=== PATIENT | male | born 1950 | race Caucasian/White ===

== ENCOUNTER 2022-03-19 13:50 | Inpatient (IN) ==
[2022-03-19] MEDS ORDERED: ASPIRIN CHEW 324 MG PO STA (14:11)
--- NOTE | 2022-03-19 14:17 | Cardiology Consultation ---
Date of Consultation March 19, 2022 Assessment & Plan (1) Exertional angina: (2) Abnormal cardiovascular stress test: (3) HTN (hypertension): (4) HLD (hyperlipidemia): (5) CVA (cerebral vascular accident): Plan Patient is a 71-year-old male with cardiovascular risk factors and concerns who presented noting symptoms of progressive pattern of angina pectoris over the last years time. Symptoms now occurring at lower levels of exertion patient's been treating complaints with rest but notes overall exercise tolerance has decreased. Patient was referred by PCP for stress testing with stress testing abnormal consistent with multivessel coronary disease. Patient recommended be admitted for IV anticoagulation and referral for diagnostic coronary angiography. He presents now for planned Recommendations: Patient will be admitted and begun on IV heparin. Aspirin given in ER. We will hold clopidogrel in a.m. given suspicion of surgical disease. Patient scheduled for coronary angiography in a.m. we will begin IV hydration this evening Procedure and risks explained in detail. present for discussion. Patient is agreeable to plan History of Present Illness Reason for Consultation: Exertional angina, abnormal stress testing Requesting Physician: Kareem Calloway History of Present Illness Patient is a 71-year-old male whose ongoing issues include 1. Symptoms consistent with exertional angina with abnormal stress testing 2. Hypertension 3. Hyperlipidemia 4. 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 No recent fevers chills or unexpected infections. No bleeding difficulties. 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 No recent neurologic complaints. Appetite and weight are stable. No prior difficulties with contrast administration, sedation. Allergies Allergy/AdvReac Type Severity Reaction Status Date / Time No Known Allergies Allergy Unverified 03/19/22 14:35 Home Medications Medication Instructions Recorded Confirmed Type atorvastatin 40 mg tablet 40 mg PO HS 03/19/22 03/19/22 History clopidogrel 75 mg tablet 75 mg PO DAILY 03/19/22 03/19/22 History lisinopril 10 mg tablet 10 mg PO DAILY 03/19/22 03/19/22 History multivitamin 1 tab PO DAILY 03/19/22 03/19/22 History Patient History Medical History CVA (cerebral vascular accident) "November 2017: Two small acute-subacute infarcts within left frontal lobe" HLD (hyperlipidemia) HTN (hypertension) Surgical History Hx of colonoscopy Family History Grandfather Diabetes Father Hypertension Uncle , multiple uncles passed before 40 due to sudden [place] Coronary heart disease Social History Smoking Status: Never smoker Hx Alcohol Use: No Hx Substance Use: No Preferred Language: East Timorese marital status: Current Living Situation: Spouse current occupational status: employed 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 Feels Safe at Home: Yes Review of Systems Review of Systems: All systems reviewed & are unremarkable except as noted in HPI & below Physical Exam Constitutional: WD/WN, vitals as above Eyes: PERRL, conjunctivae normal, anicteric sclerae ENMT: external ear and nose normal, oropharynx normal Neck: trachea midline, no thyromegaly Respiratory: normal respiratory effort, lungs clear to auscultation Cardiovascular: Rate/Rhythm: regular rate and regular rhythm Heart Sounds: normal S1 and normal S2; no gallop and no murmur Palpation: normal PMI Vessels: normal carotid upstroke and radial pulses present; no JVD and no carotid bruit Extremities: no edema Gastrointestinal (Abdomen): normal bowel sounds, soft, nontender, no he patosplenomegaly Musculoskeletal: no cyanosis or clubbing, extremities motor strength 5/5 Skin: no rashes, warm and dry Neurologic: PERRL, EOMI, accommodation nl, no face palsy, no dysarthria Psychiatric: A+Ox3, euthymic affect Results & Data ([facility]) Vital Signs (Past 12 Hours) Vital Signs Temp Pulse Resp BP Pulse Ox O2 Del Method 03/19/22 13:52 37.1 C 70 16 133/79 95 Room Air Diagnostic Findings Stress echocardiogram 03/17/2022 The stress echo is markedly positive for inducible ischemia. Exercise capacity is below average . The stress test was terminated due to chest pain. Markedly abnormal horizontal/downsloping ST-depression >2mm is noted in inferior leads. Markedly abnormal horizontal/downsloping ST-depression >2mm is noted in lateral leads. Right bundle branch block occurred with stress. At rest, there is mild hypokinesis of the inferior, inferoseptal myers and apical anterior septum With stress there was induced severe hypokinesis of the entire septum and inferior wall There is stress induced mild left ventricular cavity dilatation. The left ventricular ejection fraction decreases moderately with stress. The left ventricular cavity size is normal. The wall thickness is moderately increased in segments with normal wall motion. The qualitative LV ejection fraction is 50-54% (normal). Mild mitral regurgitation is present. Mild tricuspid regurgitation is present.
--- NOTE | 2022-03-19 14:20 | Emergency Department Note ---
Impression & Plan Precordial chest pain, Abnormal cardiovascular stress test ED Provider Note NAME: HOOD LÓPZE AGE: 71 SEX: M : 1950 ARRIVES VIA: Walk-In INFORMANT: [Patient] ED PROVIDER(S): [Douglas Powell MD] CHIEF COMPLAINT: Referred by HISTORY OF PRESENT ILLNESS: The patient is a 71-year-old male who had a stress test on Sunday and failed. The patient developed typical angina ST segment abnormalities and a transient right bundle branch block. Symptoms resolved in the recovery phase without intervention. Resting echocardiography demonstrated mild hypokinesis of the septum with stress echocardiography reflecting significant ischemia/wall motion abnormalities consistent with multivessel coronary artery disease. The patient states that his chest pain is exertional, it lasts for a few minutes but then seems to resolve with rest. The intensity is a 3/10. He feels some tingling in his arms as well. He is not short of breath, no sweating or nausea. He has had the exertional chest pain now for several years, but it has been worsening lately. The patient was called by cardiology, Dr. Shafer. He was advised to come to the hospital today for admission and cardiac catheterization tomorrow. The patient currently has no chest pain. REVIEW OF SYSTEMS: See HPI for pertinent positives and negatives. A total of ten systems were reviewed and were otherwise negative. PMHx/PSHx: See Below SOCIAL HISTORY: See Below. PHYSICAL EXAM: GENERAL: Patient is in no acute distress. HEENT: No acute trauma, normocephalic atraumatic, mucous membranes moist, no nasal congestion, no scleral icterus. NECK: No stridor, no adenopathy, no meningismus, trachea is midline. LUNGS: Clear to auscultation bilaterally, no wheeze, no rhonchi, breath sounds equal. HEART: Without murmurs gallops or rubs, regular rate and rhythm. ABDOMEN: Soft, nontender, bowel sounds positive, no peritonitis. EXTREMITIES: No cyanosis or edema, full range of motion of all the joints without pain or difficulty, no signs for acute trauma. NEUROLOGIC: Oriented x 3, no acute motor or sensory deficits, no focal weakness. SKIN: No rash, no jaundice, no diaphoresis. DIFFERENTIAL DIAGNOSIS: Cardiac ischemia, aortic dissection, pulmonary embolism, pneumothorax, pneumonia, pericarditis, myocarditis, esophageal rupture, GERD, cholecystitis, pancreatitis, musculoskeletal, as well as other pathologies. EMERGENCY DEPARTMENT COURSE/PROCEDURES: ECG: Indication was chest pain. The ECG shows a normal sinus rhythm with a rate of 64. LVH is present. There is some mild nonspecific ST change primarily in the lateral leads. There is no ST elevation. No PVCs. The QTc is 422. Continuous Cardiac Monitoring: An order was placed for continuous cardiac monitoring. The monitor shows a rate of 70 with normal sinus rhythm. MEDICAL DECISION MAKING: There is no leukocytosis or worrisome anemia. There is a normal platelet count. No coagulopathy. No renal failure or significant electrolyte abnormality. No concerning liver enzyme elevation. No evidence for pancreatitis. The patient appears to be in a euthyroid state. ECG shows a normal sinus rhythm, no obvious ST elevation. Cardiac enzyme testing x1 is not consistent with acute cardiac injury. Chest x-ray does not show pneumonia, mediastinal widening or pneumothorax. COVID test returned negative. On exam, the patient was resting comfortably. He did not have any chest pain. The patient presents with an abnormal stress test. He has had classic anginal symptoms. Hospitalization has been recommended for potential cardiac catheterization tomorrow. I spoke with the patient, I talked to case management. I did speak with Dr. Shafer of cardiology. The on-call hospitalist was consulted. Patient was given 4 baby aspirin orally while in the ED. Past Med/Surg History Medical History CVA (cerebral vascular accident) "November 2017: Two small acute-subacute infarcts within left frontal lobe" HLD (hyperlipidemia) HTN (hypertension) Surgical History Hx of colonoscopy Family History Grandfather Diabetes Father Hypertension Uncle , multiple uncles passed before 40 due to sudden [place] Coronary heart disease Social History Smoking Status: Former smoker Hx Alcohol Use: No Hx Substance Use: No Preferred Language: Gabonese Communication Ability: Effective Museum Exhibit Designer Required: No marital status: Current Living Situation: Spouse current occupational status: employed 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 Feels Safe at Home: Yes Safety Concerns: Feels Safe At This Time Assistive Devices: Glasses Allergies Allergies Allergy/AdvReac Type Severity Reaction Status Date / Time No Known Allergies Allergy Unverified 03/19/22 14:35 Home Meds Home Medications Medication Instructions Recorded Confirmed atorvastatin 40 mg tablet 40 mg PO HS 03/19/22 03/19/22 clopidogrel 75 mg tablet 75 mg PO DAILY 03/19/22 03/19/22 lisinopril 10 mg tablet 10 mg PO DAILY 03/19/22 03/19/22 multivitamin 1 tab PO DAILY 03/19/22 03/19/22 Results & Data (ED) Vital Signs Vital Signs - 24 hr 03/19/22 13:52 Temperature 37.1 C Temperature Source Oral Pulse Rate 70 Respiratory Rate 16 Respiratory Effort / Characteristics Non-Labored Respiratory Depth Normal Blood Pressure 133/79 Blood Pressure Mean 97 Pulse Oximetry 95 Oxygen Delivery Method Room Air Sepsis Recent Fever Within 48 Hours No Sepsis New/Unexplained Change in Mental Status No Sepsis Action Taken by Nursing No Action Required Home Medications Current Medication List: was personally reviewed by me Laboratory Data Attestation: I reviewed the patient's lab results. Result diagrams: 03/19/22 14:38 03/19/22 14:38 Administered Medications Atorvastatin Calcium (Atorvastatin 40 Mg Tab) 40 mg PO HS BECKY Stop: 04/18/22 20:59 Last Admin: 03/19/22 20:10 Dose: 40 mg Documented By: SASKIA Heparin Sodium/Dextrose (Heparin Sodium/Dextrose) 25,000 units in 500 mls @ 26 mls/hr IV .[id number] [facility]; Protocol Stop: 04/18/22 14:59 Last Admin: 03/19/22 17:46 Dose: 1,300 units/hr, 26 mls/hr Documented By: MALINA Co-signed By: CC Discontinued Medications Aspirin (Aspirin Chew 324 Mg) 324 mg PO NOW STA Stop: 03/19/22 14:12 Last Admin: 03/19/22 15:30 Dose: 324 mg Documented By: HS Heparin Sodium/Dextrose (Heparin Iv Adult Wt-Based Standard *No* Bolus Protocol) 1 each IV ONE ONE; Protocol Stop: 03/19/22 14:41 Last Admin: 03/19/22 17:47 Dose: 1 each Documented By: MARIA DEL ROSARIO Imaging Data Radiologist's Impression: Chest X-Ray 03/19/22 14:11 SINGLE VIEW CHEST CLINICAL HISTORY: Atypical chest pain FINDINGS: An AP, portable, upright chest radiograph is compared to study dated 12/20/2017. The heart is enlarged. The pulmonary vasculature is noncongested. The lungs and pleural spaces are clear. No pneumothorax is seen. The skeletal structures are osteopenic. The bony thorax is grossly intact. There is atherosclerotic calcification of the carotid bulbs. IMPRESSION: Cardiomegaly with no active disease in the chest. ACT 112: Negative or not required by law. Electronically signed by: Douglas Sanders M.D. 03/19/2022 3:16 PM Discharge Plan Visit Data Chief Complaint: Referred by Doctor Stated Complaint: REFERRED BY DOCTOR ED Provider: Douglas Powell Discharge Problem: Precordial chest pain, Abnormal cardiovascular stress test Patient Disposition: Admitted As Inpatient Condition: Good Discharge Instructions Interventions: ED Discharge Assessment Last Done: 03/19/22 16:27
[2022-03-19] MEDS ORDERED: Heparin IV Adult Wt-Based Standard *NO* Bolus Protocol IV ONE (14:40)
--- NOTE | 2022-03-19 14:48 | History & Physical Report ---
Date of Service March 19, 2022 Assessment & Plan (1) Abnormal cardiovascular stress test: (2) Exertional angina: (3) HTN (hypertension): (4) HLD (hyperlipidemia): (5) CVA (cerebral vascular accident): Plan This is a 71-year-old male who has a significant past medical history of HTN, HLD, history of left MCA distribution CVA without residual deficit in 2018 on antiplatelet therapy who presents to ED at the referral of cardiology due to failed outpatient stress test. Abnormal cardiovascular stress test Exertional angina Admit to PCU Cardiology on board, referred patient for admission N.p.o. after midnight for cardiac catheterization in a.m. IV heparin no bolus initiated ASA given in ED, 324mg Patient did take Plavix today, will hold morning Plavix until results of catheterization, confirmed this with cardiology Lipid panel and A1c in a.m. Continue atorvastatin and lisinopril IV hydration this evening HTN Continue lisinopril HLD Continue statin History of CVA, left MCA distribution without residual deficit On statin and Plavix therapy as outpatient DVT prophylaxis: IV heparin, SCDs Dispo: PCU, n.p.o. after midnight, cardiac catheterization in a.m. PCP: Baltazar FULL CODE Patient was seen and examined in collaboration with Dr. Wharton, please see addendum History of Present Illness Chief Complaint: Referred to ED by cardiology due to failed outpatient stress test. Primary Care Provider: Ace Ledesma, DO This is a 71-year-old male who has a significant past medical history of HTN, HLD, history of left MCA distribution CVA without residual deficit in 2018 on antiplatelet therapy who presents to ED at the referral of cardiology due to failed outpatient stress test. Patient was seen and evaluated by cardiology for outpatient stress test due to a progressive pattern of chest pain over the last several years. His chest pain has now been occurring with minimal exertion and symptoms have been improved with rest. On 03/17 he underwent stress echocardiogram which was markedly abnormal showing ST depressions in inferior and lateral leads, right bundle celio block occurring with stress. At rest there was mild hypokinesis of the inferior, inferior septal myers and apical anterior septum. With stress there was severe hypokinesis of the entire septum and inferior wall, stress-induced mild left ventricular cavity dilation and left ventricular ejection fraction decreases moderately with stress. He was referred to immediately seek hospital for further medical management on 03/17; however, patient declined. He was agreeable however to come over today for admission and cardiac catheterization tomorrow despite this not being optimal. At rest currently he feels well. He denies any fever, chills, sweats, lightheadedness, dizziness, syncope, chest pain, shortness with, cough, nausea, vomiting, abdominal pain, change in bowel or urinary habits. He did take his Plavix this morning. He is typically very active at baseline. 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 Allergies Allergy/AdvReac Type Severity Reaction Status Date / Time No Known Allergies Allergy Unverified 03/19/22 14:35 Home Medications Medication Instructions Recorded Confirmed Type atorvastatin 40 mg tablet 40 mg PO HS 03/19/22 03/19/22 History clopidogrel 75 mg tablet 75 mg PO DAILY 03/19/22 03/19/22 History lisinopril 10 mg tablet 10 mg PO DAILY 03/19/22 03/19/22 History multivitamin 1 tab PO DAILY 03/19/22 03/19/22 History Past Med/Surg History Medical History CVA (cerebral vascular accident) "November 2017: Two small acute-subacute infarcts within left frontal lobe" HLD (hyperlipidemia) HTN (hypertension) Surgical History Hx of colonoscopy Family History Grandfather Diabetes Father Hypertension Uncle , multiple uncles passed before 40 due to sudden [place] Coronary heart disease Social History Smoking Status: Never smoker Hx Alcohol Use: No Hx Substance Use: No Preferred Language: Azeri marital status: Current Living Situation: Spouse 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 occupational status: 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 Normal insp/exp effort, no accessory muscle use Cardiovascular: RRR, no murmur, no edema Vessels: no JVD or carotid bruit Chest: normal inspection of chest Abdomen: normal bowel sounds, soft, nontender, no hepatosplenomegaly Musculoskeletal: no cyanosis or clubbing, extremities motor strength 5/5 Skin: no rashes, warm and dry normal turgor Neurologic: PERRL, EOMI, accommodation nl, no face palsy, no dysarthria CN's II-XI intact bilaterally and moves all extremities Psychiatric: A+Ox3, euthymic affect Lymphatic: no cervical or axillary lymphadenopathy : deferred Results & Data Results & Data ([facility]) Vital Signs (Past 12 Hours) Vital Signs Temp Pulse Resp BP Pulse Ox O2 Del Method 03/19/22 13:52 37.1 C 70 16 133/79 95 Room Air Diagnostic Findings Stress echocardiogram 03/17/2022 The stress echo is markedly positive for inducible ischemia. Exercise capacity is below average . The stress test was terminated due to chest pain. Markedly abnormal horizontal/downsloping ST-depression >2mm is noted in inferior leads. Markedly abnormal horizontal/downsloping ST-depression >2mm is noted in lateral leads. Right bundle branch block occurred with stress. At rest, there is mild hypokinesis of the inferior, inferoseptal myers and apical anterior septum With stress there was induced severe hypokinesis of the entire septum and inferior wall There is stress induced mild left ventricular cavity dilatation. The left ventricular ejection fraction decreases moderately with stress. The left ventricular cavity size is normal. The wall thickness is moderately increased in segments with normal wall motion. The qualitative LV ejection fraction is 50-54% (normal). Mild mitral regurgitation is present. Mild tricuspid regurgitation is present. ECG Rate (beats per minute): 64 Rhythm: normal sinus COVID-19 Results Results COVID-19 Adm Lab Results: RBC 4.15 M/uL (4.63-6.08) L 03/19/22 WBC 5.09 K/ul (4.8-10.8) 03/19/22 Hgb 13.7 g/dl (14.0-18.0) L 03/19/22 Hct 40.1 % (40.1-51.0) 03/19/22 Plt Count 178 K/uL (130-400) 03/19/22 Neutrophils (%) (Auto) 50.5 % 03/19/22 Lymphocytes (%) (Auto) 37.9 % 03/19/22 Monocytes # (Auto) 0.46 K/uL (0.24-0.82) 03/19/22 Eosinophils # (Auto) 0.09 K/uL (0-0.50) 03/19/22 Immature Granulocyte % (Auto) 0.0 % 03/19/22 Neutrophils # (Auto) 2.57 K/uL (1.4-6.5) 03/19/22 Lymphocytes # (Auto) 1.93 K/uL (1.2-3.4) 03/19/22 Monocytes # (Auto) 0.46 K/uL (0.24-0.82) 03/19/22 Eosinophils # (Auto) 0.09 K/uL (0-0.50) 03/19/22 Basophils # (Auto) 0.04 K/uL (0-0.2) 03/19/22 Immature Granulocyte # (Auto) 0.00 K/uL (0.00-0.02) 2 Na 141 mmol/L (136-145) 03/19/22 K 3.9 mmol/L (3.5-5.1) 03/19/22 Cl 103 mmol/L (98-107) 03/19/22 CO2 24 mmol/L (21-32) 03/19/22 Anion Gap 14 (3-11) H 03/19/22 BUN 16 mg/dl (6-23) 03/19/22 Creatinine 1.01 mg/dl (0.6-1.4) 03/19/22 BUN/Creatinine Ratio 15.8 (10-20) 03/19/22 Glucose Level 134 mg/dl (70-99(Fasting)) H 03/19/22 Ca 9.2 mg/dl (8.5-10.1) 03/19/22 Total Bilirubin 0.6 mg/dl (0.2-1.0) 03/19/22 AST/SGOT 23 U/L (13-39) 03/19/22 ALT/SGPT 19 U/L (7-52) 03/19/22 Alkaline Phosphatase 50 U/L (34-104) 03/19/22 Total Protein 6.9 gm/dl (6.0-8.3) 03/19/22 Albumin 4.2 gm/dl (3.4-5.0) 03/19/22 Globulin 2.7 gm/dl (2.5-4.0) 03/19/22 Albumin/Globulin Ratio 1.6 (0.9-2) 03/19/22 PTT 25.1 Seconds (21.0-31.0) 03/19/22 INR 1.0 (0.9-1.1) 03/19/22 SARS-CoV-2, RNA, NAAT NEGATIVE (NEGATIVE) 03/19/22 Chest X-Ray 03/19/22 Code Status & VTE Plan Code Status FULL CODE VTE Prophylaxis Plan VTE Prophylaxis will be ordered: Yes Supervising Physician Co-Signing Physician Notes Pt was seen and examined. Agreed with Mirna DUMONT exam, assessment and plan. 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 Pt said that he had the stress done because of intermittent chest pain that he has been having for about 2 years, now occurs more with minimal exertion. He received a call from Dr. Shafer to come to the ER that he can arrange for cardiac cath tomorrow morning. Currently patient denies any chest pain. Case discussed with cardiology that recommended to start on IV heparin drip with no bolus and hold Plavix for now. Aspirin 324mg given in the ER. Will make NPO after midnight for cardiac cath in am. Will monitor closely in PCU. MD Dio
[2022-03-19 14:53] LABS: Basophils # (auto) 0.04 K/uL (0-0.2); Basophils % (auto) 0.8 %; Eosinophils # (auto) 0.09 K/uL (0-0.50); Eosinophils % (auto) 1.8 %; Hematocrit (blood only) 40.1 % (40.1-51.0); Hemoglobin 13.7 g/dl (14.0-18.0); Lymphocytes # (auto) 1.93 K/uL (1.2-3.4); Lymphocytes % (auto) 37.9 %; Mean Corpuscular Hgb Conc 34.2 g/dL (32.0-36.0); Mean Corpuscular Volume 96.6 fL (80.0-100.0); Mean Platelet Volume 10.2 fL (9.4-12.4); Monocytes # (auto) 0.46 K/uL (0.24-0.82); Neutrophils # (auto) 2.57 K/uL (1.4-6.5); Neutrophils % (auto) 50.5 %; Platelet Count 178 K/uL (130-400); RDW Coefficient of Variation 12.3 % (11.5-14.5); RDW Standard Deviation 43.8 fL (36.4-46.3); Red Blood Count 4.15 M/uL (4.63-6.08); White Blood Count 5.09 K/ul (4.8-10.8)
[2022-03-19 15:06] LABS: Partial Thromboplastin Ratio 0.9; Partial Thromboplastin Time 25.1 Seconds (21.0-31.0); Prothrombin Time 10.9 Seconds (9.0-12.0)
--- NOTE | 2022-03-19 15:17 | XRay Report ---
SINGLE VIEW CHEST CLINICAL HISTORY: Atypical chest pain FINDINGS: An AP, portable, upright chest radiograph is compared to study dated 12/20/2017. The heart i s enlarged. The pulmonary vasculature is noncongested. The lungs and pleural spaces are clear. No pne umothorax is seen. The skeletal structures are osteopenic. The bony thorax is grossly intact. There i s atherosclerotic calcification of the carotid bulbs. IMPRESSION: Cardiomegaly with no active disease in the chest. ACT 112: Negative or not required by law. Electronically signed by: Douglas Sanders M.D. 03/19/2022 3:16 PM
[2022-03-19 15:22] LABS: Troponin I High Sensitivity 18.7 pg/ml (0-20)
[2022-03-19 15:24] LABS: Albumin Globulin Ratio 1.6 (0.9-2); Albumin Level 4.2 gm/dl (3.4-5.0); BUN Creatinine Ratio 15.8 (10-20); Bilirubin,Total 0.6 mg/dl (0.2-1.0); Calcium 9.2 mg/dl (8.5-10.1); Est GFR (African American) 85.7 ml/min; Globulin 2.7 gm/dl (2.5-4.0); Potassium 3.9 mmol/L (3.5-5.1); Total Protein 6.9 gm/dl (6.0-8.3)
[2022-03-19] MEDS ORDERED: ONDANSETRON INJ 2 MG/ML 2 ML VIAL IV PRN (17:24)
[2022-03-19] MEDS ORDERED: ALUMINUM/MAGNESIUM SUSP 30 ML UDC PO PRN (17:24)
[2022-03-19] MEDS ORDERED: ACETAMINOPHEN 325 MG TAB PO PRN (17:24)
[2022-03-19] MEDS ORDERED: POLYETHYLENE (MIRALAX) 17 GM PACK PO PRN (17:24)
[2022-03-19] MEDS: HEPARIN SODIUM/DEXTROSE 25,000 UNITS/500 ML BAG IV SCH (17:46)
[2022-03-19] MEDS ORDERED: ATORVASTATIN 40 MG TAB PO SCH (21:00)
--- NOTE | 2022-03-19 22:00 | Electrocardiogram Report ---
Test Reason : Blood Pressure : / mmHG Vent. Rate : 064 BPM Atrial Rate : 064 BPM P-R Int : 178 ms QRS Dur : 090 ms QT Int : 410 ms P-R-T Axes : 000 -21 033 degrees QTc Int : 422 ms Normal sinus rhythm Minimal voltage criteria for LVH, may be normal variant Nonspecific ST and T wave abnormality Abnormal ECG When compared with ECG of 21-DEC-2017 07:20, No significant change was found Confirmed by Jackson Johnson ([id number]) on 03/19/2022 10:00:23 PM Referred By: Chun Shafer Confirmed By:Jackson Johnson
[2022-03-20] MEDS ORDERED: SODIUM CHLORIDE 0.9% 1000ML 1,000 ML IV SCH (00:01)
[2022-03-20 00:16] LABS: Partial Thromboplastin Ratio 2.3
[2022-03-20 00:31] LABS: Partial Thromboplastin Time 63.4 Seconds (21.0-31.0)
[2022-03-20 07:20] LABS: Basophils # (auto) 0.05 K/uL (0-0.2); Basophils % (auto) 0.8 %; Eosinophils # (auto) 0.16 K/uL (0-0.50); Eosinophils % (auto) 2.6 %; Hematocrit (blood only) 39.7 % (40.1-51.0); Hemoglobin 13.8 g/dl (14.0-18.0); Immature Granulocytes # (auto) 0.01 K/uL (0.00-0.02); Immature Granulocytes % (auto) 0.2 %; Lymphocytes # (auto) 2.81 K/uL (1.2-3.4); Lymphocytes % (auto) 44.9 %; Mean Corpuscular Hgb Conc 34.8 g/dL (32.0-36.0); Mean Platelet Volume 10.5 fL (9.4-12.4); Monocytes # (auto) 0.55 K/uL (0.24-0.82); Monocytes % (auto) 8.8 %; Neutrophils # (auto) 2.68 K/uL (1.4-6.5); Neutrophils % (auto) 42.7 %; Platelet Count 180 K/uL (130-400); RDW Coefficient of Variation 12.3 % (11.5-14.5); RDW Standard Deviation 43.1 fL (36.4-46.3); Red Blood Count 4.18 M/uL (4.63-6.08); White Blood Count 6.26 K/ul (4.8-10.8)
[2022-03-20 07:58] LABS: Partial Thromboplastin Ratio 3.3
[2022-03-20 08:00] LABS: Partial Thromboplastin Time 91.4 Seconds (21.0-31.0)
[2022-03-20 08:08] LABS: Albumin Globulin Ratio 1.6 (0.9-2); Albumin Level 4.2 gm/dl (3.4-5.0); BUN Creatinine Ratio 14.8 (10-20); Bilirubin,Total 0.8 mg/dl (0.2-1.0); Calcium 9.1 mg/dl (8.5-10.1); Creatinine Clr Calc Pharmacy 59.8 ml/min; Est GFR (African American) 79.1 ml/min; Est GFR (Non-African American) 68.2 ml/min; Globulin 2.6 gm/dl (2.5-4.0); Magnesium 2.1 mg/dl (1.7-2.4); Potassium 4.1 mmol/L (3.5-5.1); Total Protein 6.8 gm/dl (6.0-8.3)
--- NOTE | 2022-03-20 08:23 | Pre Anesthesia Assessment ---
Date of Service March 20, 2022 Pre Sedation Assessment Vital Signs Temp Pulse Pulse Pulse Resp BP BP 03/20/22 03:36 36.7 C 46 L 18 125/61 03/19/22 23:37 36.5 C 54 L 18 116/63 03/19/22 22:59 47 L 03/19/22 21:10 49 L 03/19/22 21:00 36.7 C 75 16 145/77 H 03/19/22 19:42 36.7 C 54 L 18 03/19/22 16:48 50 L 03/19/22 17:00 37.6 C H 67 18 03/19/22 16:27 03/19/22 16:00 51 L 20 03/19/22 16:00 127/85 03/19/22 15:30 56 L 20 03/19/22 15:30 141/96 H 03/19/22 15:29 56 L 16 03/19/22 16:19 18 03/19/22 15:30 61 20 141/96 H 03/19/22 14:30 70 16 03/19/22 13:52 37.1 C 70 16 133/79 BP Pulse Ox O2 Del Method 03/20/22 03:36 97 Room Air 03/19/22 23:37 95 Room Air 03/19/22 22:59 03/19/22 21:10 03/19/22 21:00 95 Room Air 03/19/22 19:42 130/79 96 Room Air 03/19/22 16:48 03/19/22 17:00 142/88 H 97 Room Air 03/19/22 16:27 Room Air 03/19/22 16:00 03/19/22 16:00 03/19/22 15:30 03/19/22 15:30 03/19/22 15:29 03/19/22 16:19 97 03/19/22 15:30 97 Room Air 03/19/22 14:30 95 Room Air 03/19/22 13:52 95 Room Air Cardiovascular + regular rate and + regular rhythm + S1 normal and + S2 normal; no murmur + femoral pulses present and + radial pulses present; no JVD Respiratory normal respiratory effort, lungs clear to auscultation Pre-Sedation Airway Assessment Smoking Status: Former smoker Short, Thick Neck: No Thyromental Distance: > or= 3.5 Finger Breadths Oral Cavity: + WNL Mallampati Class: III ASA: ASA3 NPO Status Date of Last Intake of Fluids: 03/19/22 Date of Last Intake of Solid Food: 03/19/22 Procedure Planning Contraindications for Sedation: none Current Medications Reviewed: Yes Notes The planned sedation has been discussed with the patient. Informed Consent was obtained. I have identified the patient, determined the appropriateness of sedation and have assessed the patient immediately prior to the procedure. All medicine(s) and interventions are by my order.
[2022-03-20] MEDS ORDERED: niCARdipine HCL INJ 2.5 MG/ML 10 ML AMP ONE (08:48)
[2022-03-20] MEDS ORDERED: HEPARIN (PORCINE) 1000 UNIT/ML 10 ML (CATH LAB USE ONLY) ONE (08:48)
[2022-03-20] MEDS ORDERED: MIDAZOLAM HCL 1 MG/ML 2ML VIAL ONE (08:48)
[2022-03-20] MEDS ORDERED: fentaNYL citrate 100 MCG/2 ML VIAL ONE (08:48)
[2022-03-20] MEDS ORDERED: NITROGLYCERIN/D5W 100MCG/ML 20ML SYR ONE (08:49)
[2022-03-20] MEDS ORDERED: lisinopril 10 MG TAB PO SCH (09:00)
--- NOTE | 2022-03-20 09:15 | Post Anesthesia Assessment ---
Date of Service March 20, 2022 Post Sedation Assessment Vital Signs Temp Pulse Pulse Pulse Resp BP BP 03/20/22 08:55 51 L 16 138/86 03/20/22 03:36 36.7 C 46 L 18 125/61 03/19/22 23:37 36.5 C 54 L 18 116/63 03/19/22 22:59 47 L 03/19/22 21:10 49 L 03/19/22 21:00 36.7 C 75 16 145/77 H 03/19/22 19:42 36.7 C 54 L 18 03/19/22 16:48 50 L 03/19/22 17:00 37.6 C H 67 18 03/19/22 16:27 03/19/22 16:00 51 L 20 03/19/22 16:00 127/85 03/19/22 15:30 56 L 20 03/19/22 15:30 141/96 H 03/19/22 15:29 56 L 16 03/19/22 16:19 18 03/19/22 15:30 61 20 141/96 H 03/19/22 14:30 70 16 03/19/22 13:52 37.1 C 70 16 133/79 BP Pulse Ox O2 Del Method 03/20/22 08:55 96 Room Air 03/20/22 03:36 97 Room Air 03/19/22 23:37 95 Room Air 03/19/22 22:59 03/19/22 21:10 03/19/22 21:00 95 Room Air 03/19/22 19:42 130/79 96 Room Air 03/19/22 16:48 03/19/22 17:00 142/88 H 97 Room Air 03/19/22 16:27 Room Air 03/19/22 16:00 03/19/22 16:00 03/19/22 15:30 03/19/22 15:30 03/19/22 15:29 03/19/22 16:19 97 03/19/22 15:30 97 Room Air 03/19/22 14:30 95 Room Air 03/19/22 13:52 95 Room Air Recovery Score Activity: Moves 4 extremities Respiration: Deep Breath/Cough Circulation: +/-20% PreAnes Value Consciousness: Fully Awake Oxygen Saturation: > 92% On Room Air Post Anesthesia Score: 10 Discharge Sedation Level of Care: Phase I Post Sedation Plan On clinical assessment, the patient appears to have tolerated the sedation without complications. Patient is recovering as anticipated. Patient will continue to be monitored by nursing and may be discharged when sedation discharge criteria are met per below protocol. Upon Completions of procedure up to 15 minutes continue every 5 minute vital signs and the P.A.R. score; then discharge to a Phase I or Fast Track to Phase II per the following guidelines: * Discharge Patient to appropriate Phase II area if PAR is 8 or greater or return to pre- procedure baseline. The post - procedure orders will be as directed. * If PAR score is less than 8 or not return to pre-procedure baseline then patient will follow Phase I monitoring till PAR is reached for Phase II. The Phase I may be done in procedure room or may call to secure a Phase I area. * If naloxone or flumazenil are used for reversal, hold in Phase I for continued monitoring from when last reversal dose was given for a minimum of 60 minutes or longer pending the nurse and/or physician discretion of patient condition before discharge to Phase II. Please call the Sedation Physician to re-evaluate and complete post-note for discharge to Phase II area. Do NOT discharge from procedure sedation or Phase 1 until post- sedation evaluation note is complete by procedure /sedation MD Sedation Discharge Instructions to be given to the patient at discharge to home. Supervising Physician Co-Signing Physician Notes Pt was seen and examined. Agreed with Mirna DUMONT exam, assessment and plan. 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 Pt said that he had the stress done because of intermittent chest pain that he has been having for about 2 years, now occurs more with minimal exertion. He received a call from Dr. Shafer to come to the ER that he can arrange for cardiac cath tomorrow morning. Currently patient denies any chest pain. Case discussed with cardiology that recommended to start on IV heparin drip with no bolus and hold Plavix for now. Aspirin 324mg given in the ER. Will make NPO after midnight for cardiac cath in am. Will monitor closely in PCU. MD Dio
--- NOTE | 2022-03-20 09:18 | Cardiac Catheterization ---
Cardiac Cath Procedure Brief Procedure Date March 20, 2022 Pre-Procedure Diagnosis Pre-Procedure Diagnosis: Angina and Positive Stress Test AUC Score AUC Score: 9 Post-Procedure Diagnosis Post-Procedure Diagnosis: Severe CAD Procedure(s) Performed Procedure(s) Performed: Coronary Angiography Oversize Load Pilot Escort Chun Shafer MD Clinical Operations Consultant(s) Joann Mcmahon Estimated Blood Loss Estimated Blood Loss: <15cc Medication(s) Medication(s): Fentanyl (12.5 mcg IV), Heparin (2500 units IV), Lidocaine 1% (Local infiltration access site), Nicardipine (250 mcg intra-arterial after arterial sheath insertion) and Versed (1 mg IV) Preliminary Findings Critical coronary artery disease Subtotal occlusion right coronary artery with collateral fill via left anatomy Severe left main stenosis, severe ostial left circumflex Recommendations Recommendations: CABG Specimens Specimens: None Procedural Complication(s) None Disposition PCU
--- NOTE | 2022-03-20 09:30 | Cardiac Catheterization ---
Cardiac Cath Procedure Full Procedure Date March 20, 2022 Pre-Procedure Diagnosis Pre-Procedure Diagnosis: Angina and Positive Stress Test (Severe multisegment induced ischemia) AUC Score AUC Score: 9 Post-Procedure Diagnosis Post-Procedure Diagnosis: Severe CAD Procedure(s) Performed Procedure(s) Performed: Coronary Angiography Tree Expert Chun Shafer MD Global Marketing Specialist(s) Joann Mcmahon Estimated Blood Loss Estimated Blood Loss: <15cc Medication(s) Medication(s): Fentanyl (12.5 mcg IV), Heparin (2500 units IV), Lidocaine 1% (Local infiltration access site), Nicardipine (250 mcg intra-arterial after arterial sheath insertion) and Versed (1 mg IV) Summary of Findings Impression: Critical coronary artery disease including left main, ostial left anterior sending and circumflex disease Subtotal occlusion right coronary artery with collateral fill via left anatomy Severe left main stenosis, severe ostial left circumflex, critical ostial left anterior descending stenosis with DERECK II flow Plan: Patient referred for surgical revascularization this admission. Adequate surgical targets present including large ramus intermedius Procedure: Coronary angiography Indications: Accelerated angina, markedly abnormal stress testing Access: Right radial artery Catheters: 5 Bhutanese radial sheath, 5 Bh[place]anese [place] Complications: None Hemodynamics Rest Ao:: 135/70/95 Final Ao: 135/72/97 LV: N/A Recommendations Recommendations: CABG Specimens Specimens: None Radiation Exposure (mGy) 388 Contrast (mls) 35 Fluids (cc crystalloids) Fluids (cc crystalloids): 85 Procedural Complication(s) None Disposition PCU I attest to the content of the Intraoperative Record and any orders documented therein. Any exceptions are noted below. ACC Data: Purification Director Cardiac Status Clinical evaluation leading to the procedure CAD Presenation: Positive Stress Test and Unstable angina Anginal Classification: CCS III Heart Failure: No Cardiogenic Shock within 24 Hours: No Cardiac Arrest within 24 Hours: No Imaging Studies Past 6 Months: Yes Stress Studies Past 6 Months: Yes Standard Exercise Test: No Stress Echocardiogram: Yes - Positive and Risk/Extent of Ischemia (High) Stress Testing w/SPECT MPI: No Cardiac CTA: No Coronary Anatomy Dominant: Right Left Main (% Stenosis): Distal (80) LAD (% Stenosis): Ostial (99) and Mid (80) D1 (% Stenosis): Normal D2 (% Stenosis): Normal Circumflex (% Stenosis): Ostial (90) OM1 (% Stenosis): Normal L PL1 (% Stenosis): Normal RCA (% Stenosis): Proximal (99) and Distal (90) AM (% Stenosis): Ostial (Large bifurcating vessel with mild proximal vessel ectasia) Left Ventricular Angiography EF (%): N/A Diagnostic Physicians Name: Chun Shafer MD Status: Urgent Closure Device Percutaneous Entry Location: Radial Closure Device: Radial Band Recommendations: CABG
[2022-03-20 10:57] LABS: Partial Thromboplastin Ratio 3.2
[2022-03-20 11:05] VITALS: TEMP 97.7
[2022-03-20 11:11] LABS: Estimated Average Glucose 123 mg/dl; Hemoglobin A1C 5.9 % (4.5-5.6)
--- NOTE | 2022-03-20 12:05 | Cardiology Progress Note ---
Date of Service March 20, 2022 Assessment & Plan (1) Exertional angina: (2) Abnormal cardiovascular stress test: (3) HTN (hypertension): (4) HLD (hyperlipidemia): (5) CVA (cerebral vascular accident): Plan Patient is a 71-year-old male with cardiovascular risk factors and concerns who presented noting symptoms of progressive pattern of angina pectoris over the last years time. Symptoms now occurring at lower levels of exertion patient's been treating complaints with rest but notes overall exercise tolerance has decreased. Patient was referred by PCP for stress testing with stress testing abnormal consistent with multivessel coronary disease. Patient recommended be admitted for IV anticoagulation and referral for diagnostic coronary angiography. Recommendations:Patient underwent coronary angiography this morning demonstrating findings consistent with stress testing and clinical history. Critical coronary artery disease present including distal left main ostial left anterior descending and ostial left circumflex high-grade stenoses. Large ramus intermedius present Right coronary artery is diffusely diseased with collateral fill via left coronary anatomy Surgical coronary artery disease present, discussed in detail and arrangements made for transfer to [facility] anticipation of surgical revascularization. Full anticoagulation to be continued with IV heparin and aspirin no further Plavix. Patient report any new symptoms or complaints then with any signs of hemodynamic stability would require an intra-aortic balloon pump. No indications for such at this time Admission and Anticipated Discharge Date Admission Date: March 19, 2022 Subjective Patient seen and examined both pre and post cardiac catheterization. Results of study discussed in detail with patient and . Currently no chest pains or cardiac complaints noted. No shortness of breath. Right radial access arterial pressure band in place Physical Exam Constitutional: WD/WN, vitals as above Eyes: PERRL, conjunctivae normal, anicteric sclerae ENMT: Mallampati Class: III Neck: trachea midline, no thyromegaly Respiratory: normal respiratory effort, lungs clear to auscultation Cardiovascular: Rate/Rhythm: regular rate and regular rhythm Heart Sounds: normal S1 and normal S2; no gallop and no murmur Palpation: normal PMI Vessels: normal carotid upstroke, femoral pulses present and radial pulses present; no JVD and no carotid bruit Extremities: no edema Gastrointestinal (Abdomen): normal bowel sounds, soft, nontender, no hepatosplenomegaly Musculoskeletal: no cyanosis or clubbing, extremities motor strength 5/5 Skin: no rashes, warm and dry Neurologic: PERRL, EOMI, accommodation nl, no face palsy, no dysarthria Psychiatric: A+Ox3, euthymic affect Results & Data ([facility]) Vital Signs (Past 12 Hours) Vital Signs Temp Pulse Pulse Resp BP BP Pulse Ox 03/20/22 11:03 36.5 C 54 L 14 134/75 96 03/20/22 09:50 59 L 16 143/81 H 94 03/20/22 09:20 36.8 C 58 L 16 145/82 H 95 03/20/22 09:15 52 L 16 118/76 96 03/20/22 08:55 51 L 16 138/86 96 03/20/22 03:36 36.7 C 46 L 18 125/61 97 O2 Del Method 03/20/22 11:03 Room Air 03/20/22 09:50 Room Air 03/20/22 09:20 Room Air 03/20/22 09:15 Room Air 03/20/22 08:55 Room Air 03/20/22 03:36 Room Air Laboratory Results Laboratory Results - last 24 hr 03/19/22 03/19/22 03/19/22 14:38 14:38 14:38 WBC 5.09 RBC 4.15 L Hgb 13.7 L Hct 40.1 MCV 96.6 MCH 33.0 MCHC 34.2 RDW Std Deviation 43.8 RDW Coeff of Priscilla 12.3 Plt Count 178 MPV 10.2 Immature Gran % (Auto) 0.0 Neut % (Auto) 50.5 Lymph % (Auto) 37.9 [place] % (Auto) 9.0 Eos % (Auto) 1.8 Baso % (Auto) 0.8 Neut # (Auto) 2.57 Lymph # (Auto) 1.93 [place] # (Auto) 0.46 Eos # (Auto) 0.09 Baso # (Auto) 0.04 Immature Gran # (Auto) 0.00 PT 10.9 INR 1.0 APTT 25.1 PTT Ratio 0.9 Sodium 141 Potassium 3.9 Chloride 103 Carbon Dioxide 24 Anion Gap 14 H BUN 16 Creatinine 1.01 Est Cr Clr Drug Dosing 64.0 Est GFR ( Amer) 85.7 Est GFR (Non-Af Amer) 74.0 BUN/Creatinine Ratio 15.8 Glucose 134 H Estimat Average Glucose Hemoglobin A1c Calcium 9.2 Magnesium Total Bilirubin 0.6 AST 23 ALT 19 Alkaline Phosphatase 50 Troponin I High Sens 18.7 Total Protein 6.9 Albumin 4.2 Globulin 2.7 Albumin/Globulin Ratio 1.6 Triglycerides Cholesterol LDL Cholesterol, Calc VLDL Cholesterol, Calc HDL Cholesterol Cholesterol/HDL Ratio Lipase 38 TSH SARS-CoV-2, RNA, NAAT 03/19/22 03/19/22 03/19/22 14:38 15:00 23:42 WBC RBC Hgb Hct MCV MCH MCHC RDW Std Deviation RDW Coeff of Priscilla Plt Count MPV Immature Gran % (Auto) Neut % (Auto) Lymph % (Auto) [place] % (Auto) Eos % (Auto) Baso % (Auto) Neut # (Auto) Lymph # (Auto) [place] # (Auto) Eos # (Auto) Baso # (Auto) Immature Gran # (Auto) PT INR APTT 63.4 H* PTT Ratio 2.3 Sodium Potassium Chloride Carbon Dioxide Anion Gap BUN Creatinine Est Cr Clr Drug Dosing Est GFR ( Amer) Est GFR (Non-Af Amer) BUN/Creatinine Ratio Glucose Estimat Average Glucose Hemoglobin A1c Calcium Magnesium Total Bilirubin AST ALT Alkaline Phosphatase Troponin I High Sens Total Protein Albumin Globulin Albumin/Globulin Ratio Triglycerides Cholesterol LDL Cholesterol, Calc VLDL Cholesterol, Calc HDL Cholesterol Cholesterol/HDL Ratio Lipase TSH 1.397 SARS-CoV-2, RNA, NAAT NEGATIVE 03/20/22 03/20/22 03/20/22 06:59 06:59 06:59 WBC 6.26 RBC 4.18 L Hgb 13.8 L Hct 39.7 L MCV 95.0 MCH 33.0 MCHC 34.8 RDW Std Deviation 43.1 RDW Coeff of Priscilla 12.3 Plt Count 180 MPV 10.5 Immature Gran % (Auto) 0.2 Neut % (Auto) 42.7 Lymph % (Auto) 44.9 [place] % (Auto) 8.8 Eos % (Auto) 2.6 Baso % (Auto) 0.8 Neut # (Auto) 2.68 Lymph # (Auto) 2.81 [place] # (Auto) 0.55 Eos # (Auto) 0.16 Baso # (Auto) 0.05 Immature Gran # (Auto) 0.01 PT INR APTT PTT Ratio Sodium 137 Potassium 4.1 Chloride 104 Carbon Dioxide 26 Anion Gap 7 BUN 16 Creatinine 1.08 Est Cr Clr Drug Dosing 59.8 Est GFR ( Amer) 79.1 Est GFR (Non-Af Amer) 68.2 BUN/Creatinine Ratio 14.8 Glucose 97 Estimat Average Glucose 123 Hemoglobin A1c 5.9 H Calcium 9.1 Magnesium 2.1 Total Bilirubin 0.8 AST 21 ALT 19 Alkaline Phosphatase 47 Troponin I High Sens Total Protein 6.8 Albumin 4.2 Globulin 2.6 Albumin/Globulin Ratio 1.6 Triglycerides 77 Cholesterol 136 LDL Cholesterol, Calc 75 VLDL Cholesterol, Calc 15 HDL Cholesterol 46 Cholesterol/HDL Ratio 3.0 Lipase TSH SARS-CoV-2, RNA, NAAT 03/20/22 03/20/22 06:59 10:07 WBC RBC Hgb Hct MCV MCH MCHC RDW Std Deviation RDW Coeff of Priscilla Plt Count MPV Immature Gran % (Auto) Neut % (Auto) Lymph % (Auto) [place] % (Auto) Eos % (Auto) Baso % (Auto) Neut # (Auto) Lymph # (Auto) [place] # (Auto) Eos # (Auto) Baso # (Auto) Immature Gran # (Auto) PT INR APTT 91.4 H* Pending PTT Ratio 3.3 Pending Sodium Potassium Chloride Carbon Dioxide Anion Gap BUN Creatinine Est Cr Clr Drug Dosing Est GFR ( Amer) Est GFR (Non-Af Amer) BUN/Creatinine Ratio Glucose Estimat Average Glucose Hemoglobin A1c Calcium Magnesium Total Bilirubin AST ALT Alkaline Phosphatase Troponin I High Sens Total Protein Albumin Globulin Albumin/Globulin Ratio Triglycerides Cholesterol LDL Cholesterol, Calc VLDL Cholesterol, Calc HDL Cholesterol Cholesterol/HDL Ratio Lipase TSH SARS-CoV-2, RNA, NAAT
[2022-03-20 12:15] LABS: Partial Thromboplastin Time 86.9 Seconds (21.0-31.0)
--- NOTE | 2022-03-20 12:15 | Hospitalist Progress Note ---
Date of Service March 20, 2022 Assessment & Plan (1) Abnormal cardiovascular stress test: (2) Exertional angina: (3) HTN (hypertension): (4) HLD (hyperlipidemia): (5) CVA (cerebral vascular accident): Plan Patient is a 71 yr male with H/O HTN, HLD, history of left MCA distribution CVA without residual deficit in 2018 on antiplatelet therapy who presents to ED at the referral of cardiology due to failed outpatient stress test. Exertional angina Severe multivessel coronary disease Patient had abnormal stress test as outpatient. -S/P Cardiac Cath:Critical coronary artery disease including left main, ostial left anterior sending and circumflex disease. Subtotal occlusion right coronary artery with collateral fill via left anatomy. Severe left main stenosis, severe ostial left circumflex, critical ostial left anterior descending stenosis with DERECK II flow. -Patient needs surgical revascularization. Plan to transfer to [facility] for further care Continue aspirin, atorvastatin, IV heparin Avoid NTG, Morphine if patient has recurrence of chest pain as recommended by cardiology. If patient develops any hemodynamic instability, or develops chest pain, patient would require intra-aortic balloon pump. Patient is accepted by Dr.Anwer Beasley business office assistant at [facility] for further management Plan to transfer to tertiary care facility when bed available. HTN Continue lisinopril HLD Continue statin H/O CVA, left MCA distribution without residual deficit On statin and Plavix therapy as outpatient Plavix held--- as planned for surgery Continue aspirin as above DVT Px: IV heparin, SCDs Code Status FULL CODE Disposition Tertiary care facility when bed available Admission and Anticipated Discharge Date Admission Date: March 19, 2022 Subjective Patient is seen and examined at bedside Had cardiac catheterization earlier today Currently denies any chest pain, shortness breath, dizziness, nausea, abdominal pain Need to be transferred to tertiary care facility for CABG Offers no other complaints Discussed with Cardiology today Review of Systems Review of Systems: All systems reviewed & are unremarkable except as noted in Subjective Physical Exam Physical Exam: Physical Exam: Vitals signs as noted above General Appearance:Moderately built and nourished, no apparent distress Head: normocephalic, Atraumatic Eyes: normal inspection, EOMI Neck: supple, Trachea midline Respiratory/Chest: Normal breath sounds, CTA, No accessory muscle use Cardiovascular: S1, S2, No murmur Abdomen/GI:Soft, Non tender, Bowel sounds present Extremities/Musculoskeletal:normal inspection, no edema Neurologic/Psych:AAOX3, grossly no focal neurological deficits Skin: normal color, warm Results & Data Results & Data ([facility]) Vital Signs (Past 12 Hours) Vital Signs Temp Pulse Pulse Resp BP BP Pulse Ox 03/20/22 11:03 36.5 C 54 L 14 134/75 96 03/20/22 09:50 59 L 16 143/81 H 94 03/20/22 09:20 36.8 C 58 L 16 145/82 H 95 03/20/22 09:15 52 L 16 118/76 96 03/20/22 08:55 51 L 16 138/86 96 03/20/22 03:36 36.7 C 46 L 18 125/61 97 O2 Del Method 03/20/22 11:03 Room Air 03/20/22 09:50 Room Air 03/20/22 09:20 Room Air 03/20/22 09:15 Room Air 03/20/22 08:55 Room Air 03/20/22 03:36 Room Air Laboratory Results Short CBC 03/19/22 03/20/22 Range/Units 14:38 06:59 WBC 5.09 6.26 (4.8-10.8) K/ul Hgb 13.7 L 13.8 L (14.0-18.0) g/dl Hct 40.1 39.7 L (40.1-51.0) % Plt Count 178 180 (130-400) K/uL BMP 03/19/22 03/20/22 14:38 06:59 Sodium 141 137 Potassium 3.9 4.1 Chloride 103 104 Carbon Dioxide 24 26 BUN 16 16 Creatinine 1.01 1.08 Glucose 134 H 97 Calcium 9.2 9.1 Liver Function 03/19/22 03/20/22 Range/Units 14:38 06:59 Total Bilirubin 0.6 0.8 (0.2-1.0) mg/dl AST 23 21 (13-39) U/L ALT 19 19 (7-52) U/L Alkaline Phosphatase 50 47 (34-104) U/L Albumin 4.2 4.2 (3.4-5.0) gm/dl
--- NOTE | 2022-03-20 12:50 | Discharge Summary ---
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 Patient was seen and evaluated by cardiology for outpatient stress test due to a progressive pattern of chest pain over the last several years. His chest pain has now been occurring with minimal exertion and symptoms have been improved with rest. On 03/17 he underwent stress echocardiogram which was markedly abnormal showing ST depressions in inferior and lateral leads, right bundle celio block occurring with stress. At rest there was mild hypokinesis of the inferior, inferior septal myers and apical anterior septum. With stress there was severe hypokinesis of the entire septum and inferior wall, stress-induced mild left ventricular cavity dilation and left ventricular ejection fraction decreases moderately with stress. He was referred to immediately seek hospital for further medical management on 03/17; however, patient declined. He was agreeable however to come over today for admission and cardiac catheterization tomorrow despite this not being optimal. At rest currently he feels well. He denies any fever, chills, sweats, lightheadedness, dizziness, syncope, chest pain, shortness with, cough, nausea, vomiting, abdominal pain, change in bowel or urinary habits. He did take his Plavix this morning. He is typically very active at baseline. 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 Admission Exam Per Admitting Provider Physical Exam Physical Exam: Constitutional: WD/WN, vitals as above, NAD, sitting up in bed, pleasant, conversing easily Head: Normocephalic, Atraumatic Eyes: PERRL, conjunctivae normal, anicteric sclerae ENMT: external ear and nose normal, oropharynx normal Neck: trachea midline, no thyromegaly normal visual inspection Respiratory: normal respiratory effort, lungs clear to auscultation, no wheeze, rales, rhonchi. Normal insp/exp effort, no accessory muscle use Cardiovascular: RRR, no murmur, no edema Vessels: no JVD or carotid bruit Chest: normal inspection of chest Abdomen: normal bowel sounds, soft, nontender, no hepatosplenomegaly Musculoskeletal: no cyanosis or clubbing, extremities motor strength 5/5 Skin: no rashes, warm and dry normal turgor Neurologic: PERRL, EOMI, accommodation nl, no face palsy, no dysarthria CN's II-XI intact bilaterally and moves all extremities Psychiatric: A+Ox3, euthymic affect Lymphatic: no cervical or axillary lymphadenopathy : deferred Principal Diagnosis Exertional angina Severe multivessel coronary disease Prediabetes Discharge Data Allergies Allergy/AdvReac Type Severity Reaction Status Date / Time No Known Allergies Allergy Unverified 03/19/22 14:35 Consultations 03/19/22 14:30 Consult Cardiology Routine 03/19/22 15:06 ED Decision to Admit Stat Procedures Performed Operation Date: 03/20/22 08:00 Actual Procedures p Cineradiography w/Routine Exam - Chun Shafer MD s Cath, Coronaries ONLY (no LV) - Chun Shafer MD Summary of Findings Impression: Critical coronary artery disease including left main, ostial left anterior sending and circumflex disease Subtotal occlusion right coronary artery with collateral fill via left anatomy Severe left main stenosis, severe ostial left circumflex, critical ostial left anterior descending stenosis with DERECK II flow Plan: Patient referred for surgical revascularization this admission. Adequate surgical targets present including large ramus intermedius Procedure: Coronary angiography Indications: Accelerated angina, markedly abnormal stress testing Access: Right radial artery Catheters: 5 Macedonian radial sheath, 5 Macedonian [place] Complications: None Ordered Studies 03/20/22 07:20 CL Cath Imgs for PACS use only Routine Laboratory Results WBC 6.26 K/ul (4.8-10.8) 03/20/22 06:59 RBC 4.18 M/uL (4.63-6.08) L 03/20/22 06:59 Hgb 13.8 g/dl (14.0-18.0) L 03/20/22 06:59 Hct 39.7 % (40.1-51.0) L 03/20/22 06:59 MCV 95.0 fL (80.0-100.0) 03/20/22 06:59 MCH 33.0 pg (25.0-34.0) 03/20/22 06:59 MCHC 34.8 g/dL (32.0-36.0) 03/20/22 06:59 RDW Std Deviation 43.1 fL (36.4-46.3) 03/20/22 06:59 RDW Coeff of Priscilla 12.3 % (11.5-14.5) 03/20/22 06:59 Plt Count 180 K/uL (130-400) 03/20/22 06:59 MPV 10.5 fL (9.4-12.4) 03/20/22 06:59 Immature Gran % (Auto) 0.2 % 03/20/22 06:59 Neut % (Auto) 42.7 % 03/20/22 06:59 Lymph % (Auto) 44.9 % 03/20/22 06:59 Rincon % (Auto) 8.8 % 03/20/22 06:59 Eos % (Auto) 2.6 % 03/20/22 06:59 Baso % (Auto) 0.8 % 03/20/22 06:59 Neut # (Auto) 2.68 K/uL (1.4-6.5) 03/20/22 06:59 Lymph # (Auto) 2.81 K/uL (1.2-3.4) 03/20/22 06:59 Rincon # (Auto) 0.55 K/uL (0.24-0.82) 03/20/22 06:59 Eos # (Auto) 0.16 K/uL (0-0.50) 03/20/22 06:59 Baso # (Auto) 0.05 K/uL (0-0.2) 03/20/22 06:59 Immature Gran # (Auto) 0.01 K/uL (0.00-0.02) 03/20/22 06:59 PT 10.9 Seconds (9.0-12.0) 03/19/22 14:38 INR 1.0 (0.9-1.1) 03/19/22 14:38 APTT 86.9 Seconds (21.0-31.0) H* 03/20/22 10:07 PTT Ratio 3.2 03/20/22 10:07 Sodium 137 mmol/L (136-145) 03/20/22 06:59 Potassium 4.1 mmol/L (3.5-5.1) 03/20/22 06:59 Chloride 104 mmol/L (98-107) 03/20/22 06:59 Carbon Dioxide 26 mmol/L (21-32) 03/20/22 06:59 Anion Gap 7 (3-11) 03/20/22 06:59 BUN 16 mg/dl (6-23) 03/20/22 06:59 Creatinine 1.08 mg/dl (0.6-1.4) 03/20/22 06:59 Est Cr Clr Drug Dosing 59.8 ml/min 03/20/22 06:59 Est GFR ( Amer) 79.1 ml/min 03/20/22 06:59 Est GFR (Non-Af Amer) 68.2 ml/min 03/20/22 06:59 BUN/Creatinine Ratio 14.8 (10-20) 03/20/22 06:59 Glucose 97 mg/dl (70-99(Fasting)) 03/20/22 06:59 Estimat Average Glucose 123 mg/dl 03/20/22 06:59 Hemoglobin A1c 5.9 % (4.5-5.6) H 03/20/22 06:59 Calcium 9.1 mg/dl (8.5-10.1) 03/20/22 06:59 Magnesium 2.1 mg/dl (1.7-2.4) 03/20/22 06:59 Total Bilirubin 0.8 mg/dl (0.2-1.0) 03/20/22 06:59 AST 21 U/L (13-39) 03/20/22 06:59 ALT 19 U/L (7-52) 03/20/22 06:59 Alkaline Phosphatase 47 U/L (34-104) 03/20/22 06:59 Troponin I High Sens 18.7 pg/ml (0-20) 03/19/22 14:38 Total Protein 6.8 gm/dl (6.0-8.3) 03/20/22 06:59 Albumin 4.2 gm/dl (3.4-5.0) 03/20/22 06:59 Globulin 2.6 gm/dl (2.5-4.0) 03/20/22 06:59 Albumin/Globulin Ratio 1.6 (0.9-2) 03/20/22 06:59 Triglycerides 77 mg/dl (0-150) 03/20/22 06:59 Cholesterol 136 mg/dl (0-200) 03/20/22 06:59 LDL Cholesterol, Calc 75 mg/dl 03/20/22 06:59 VLDL Cholesterol, Calc 15 mg/dl (0-30) 03/20/22 06:59 HDL Cholesterol 46 mg/dl 03/20/22 06:59 Cholesterol/HDL Ratio 3.0 (0-5) 03/20/22 06:59 Lipase 38 U/L (11-82) 03/19/22 14:38 TSH 1.397 uIu/ml (0.300-4.500) 03/19/22 14:38 SARS-CoV-2, RNA, NAAT NEGATIVE (NEGATIVE) 03/19/22 15:00 Impressions Chest X-Ray 03/19/22 14:11 SINGLE VIEW CHEST CLINICAL HISTORY: Atypical chest pain FINDINGS: An AP, portable, upright chest radiograph is compared to study dated 12/20/2017. The heart is enlarged. The pulmonary vasculature is noncongested. The lungs and pleural spaces are clear. No pneumothorax is seen. The skeletal structures are osteopenic. The bony thorax is grossly intact. There is atherosclerotic calcification of the carotid bulbs. IMPRESSION: Cardiomegaly with no active disease in the chest. ACT 112: Negative or not required by law. Electronically signed by: Douglas Sanders M.D. 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 Exertional angina Severe multivessel coronary disease Patient had abnormal stress test as outpatient. -S/P Cardiac Cath:Critical coronary artery disease including left main, ostial left anterior sending and circumflex disease. Subtotal occlusion right coronary artery with collateral fill via left anatomy. Severe left main stenosis, severe ostial left circumflex, critical ostial left anterior descending stenosis with DERECK II flow. -Patient needs surgical revascularization. Plan to transfer to [facility] for further care Continue aspirin, atorvastatin, IV heparin Avoid NTG, Morphine if patient has recurrence of chest pain as recommended by cardiology. If patient develops any hemodynamic instability, or develops chest pain, patient would require intra-aortic balloon pump. Patient is accepted by Dr.Anwer Beasley metal pattern maker at [facility] for further management Plan to transfer to tertiary care facility when bed available. HTN Continue lisinopril HLD Continue statin H/O CVA, left MCA distribution without residual deficit On statin and Plavix therapy as outpatient Plavix held--- as planned for surgery Continue aspirin as above DVT Px: IV heparin, SCDs Code Status FULL CODE Disposition Tertiary care facility when bed available Total Time Total Time Spent Total Time Spent (In Minutes): 50 minutes Discharge Plan Discharge Items Patient Disposition: Transfer Acute Care Hospital Reason For Visit: FAILED OUTPATIENT STRESS TEST Discharge Diagnosis: Exertional angina Severe multivessel coronary disease Prediabetes Condition on Discharge: Good Activity: Per Instructions section Sexual Activity: Wait until after follow-up appointment Non-emergency contact: Primary Care Provider and Geospatial Analyst Call non-emergency contact if: you have any medication questions, your symptoms worsen, your pain is concerning for you and you have a fever Follow-up/Referrals: Kareem Calloway PA-C [Primary Care Provider] - Diet: Heart Healthy Addtl Attending Provider Instructions: Follow-up with your primary care physician in 1 week upon discharge from [facility] Follow-up with your metal pattern maker Dr.Anwar Davison Cardiology at [facility] for further care. --Hold talking Plavix until further instructions by your metal pattern maker as you have planned for surgery. --- Continue IV heparin, aspirin and Lipitor until further instruction Seek immediate medical attention if your symptoms reoccur or worsen Please take all medications as instructed on discharge list below. Please call if you have any questions or problems. You can reach a [facility] hospitalist on duty at [facility] 24 hours a day by calling [phone] Current Inpatient Medications Acetaminophen (Acetaminophen 325 Mg Tab) 650 mg PO Q4H PRN PRN Reason: Pain or Fever Stop: 04/18/22 17:23 Al Hydrox/Mg Hydrox/Simethicone (Aluminum/Magnesium Susp 30 Ml Udc) 15 ml PO Q4H PRN PRN Reason: Dyspepsia Stop: 04/18/22 17:23 Atorvastatin Calcium (Atorvastatin 40 Mg Tab) 40 mg PO HS BECKY Stop: 04/18/22 20:59 Last Admin: 03/19/22 20:10 Dose: 40 mg Sodium Chloride (Nss 1000ml) 1,000 mls @ 15 mls/hr IV .Q24H [facility] Stop: 04/19/22 13:00 Last Admin: 03/20/22 00:03 Dose: 40 mls/hr Heparin Sodium/Dextrose (Heparin Sodium/Dextrose) 25,000 units in 500 mls @ 0 mls/hr IV .Q0M [facility]; Protocol Stop: 04/18/22 14:59 Last Titration: 03/20/22 12:16 Dose: 0 units/hr, 0 mls/hr Lisinopril (Lisinopril 10 Mg Tab) 10 mg PO DAILY BECKY Stop: 04/19/22 08:59 Last Admin: 03/20/22 11:15 Dose: 10 mg Ondansetron HCl (Ondansetron Inj 2 Mg/Ml 2 Ml Vial) 4 mg IV Q6H PRN PRN Reason: Nausea Stop: 04/18/22 17:23 Polyethylene Glycol (Polyethylene (Miralax) 17 Gm Pack) 17 gm PO DAILY PRN PRN Reason: Constipation Stop: 04/18/22 17:23 Home Care: * Take your medications exactly as directed. Don't skip doses. * Remember that recovery after a heart attack takes time. Plan to rest for at lease 4-8 weeks while you recover. Then return to normal activity when your doctor says it's okay. * Ask your doctor about joining a heart rehabilitation program. * Tell your doctor if you are feeling depressed. Feelings of sadness are common after a heart attack, but it is important that you speak to someone if you are feeling overwhelmed by these feelings. * If you are having chest pain, call 911 for an ambulance. Do NOT drive yourself to the hospital. * Ask your family members to learn CPR. * Learn to take your own blood pressure and pulse. Keep a record of your results. Ask your doctor when you should seek emergency medical attention. He or she will tell you which blood pressure reading is dangerous. Lifestyle Changes: * Maintain a healthy weight. Get help to lose any extra pounds. * Cut back on salt. * Limit canned, dried, packaged, and fast foods. * Don't add salt to your food. * Season foods with herbs instead of salt when you cook. * Break the smoking habit. Enroll in a stop-smoking program to improve your chances of success. * Limit fatty foods. * Ask your doctor about having your lipid levels checked regularly. * Build up your activity according to your doctor's recommendation. * Ask your doctor when it's okay to resume sexual activity. * Tell your doctor about any erectile dysfunction (ED) medication you are taking. Some ED medications are not safe if you take certain heart medications. * Try to manage stress. Follow Up: It is important for you to keep your follow up appointments with your medical provider. Addtl Inside Steward/Stewardess Provider Instructions: ACTIVITY RECOMMENDATIONS: Excess manipulation of the wrist should be avoided for the next 24-48 hours. * No lifting over 2 pounds (approximately a 1/2 gallon of milk) with the utilized arm for 24 hours. * No strenuous activity such as bowling or tennis for 3 days. * Keep the site of the procedure covered with a bandage for 24 hours. *You may shower the day after the procedure. Do not take a tub bath or submerge the puncture site in water for the next 3 days. *Do not operate any motorized equipment for 3 days. SPECIAL CARE INSTRUCTIONS: The site may be slightly bruised and sore following your procedure. Should any of the following occur, contact the Dr. who performed your procedure. 1. Redness/inflammation, swelling, chills, or fever, or colored drainage at procedure site within 3-7 days after your procedure. 2. Coldness, discoloration, ongoing numbness, severe pain, or swelling. Expect mild tingling of hand and tenderness at the puncture site for up to three days. If this persists beyond three days, or other symptoms develop, notify the Dr. who performed your procedure. BLEEDING: If the procedure site on your wrist begins to bleed, do not panic 1. Place 1 or 2 fingers firmly just slightly above the insertion site to stop the bleeding. You may be able to feel your pulse as you hold pressure. 2. Lift your finger after 5 minutes to see if the bleeding has stopped. 3. Once the bleeding has stopped, gently wipe the wrist area clean with a bandage. * If the bleeding from your wrist does not stop after 10 minutes, or if there is a large amount of bleeding or spurting, call 911 (do not drive yourself to the hospital). SKIN IRRITATION: * You may experience some redness and/or swelling in the area where radiation was administered. If any skin irritation occurs, please contact your family physician. FOLLOW UP VISIT: Keep any scheduled doctor appointments. Pending Studies at Discharge: No Stand-Alone Forms: My [facility] KeyMe Skilled Items Patient informed of condition?: Yes DNR: No Discharge Level of Care: Other Communicable Disease: No Discharge Prognosis: Stable Lines: Peripheral IV Urinary Catheter: No Medications and DC Order Prescriptions: Continued multivitamin Tablet 1 tab PO DAILY atorvastatin 40 mg tablet 40 mg PO HS lisinopril 10 mg tablet 10 mg PO DAILY Discontinued clopidogrel 75 mg tablet 75 mg PO DAILY Discharge Orders: Discharge Order (Routine); Ordered 03/20/22 Ordered By: Giuseppe Navarrete Admission Data Admit Date/Time: 03/19/22 14:30 Attending Provider: Giuseppe Navarrete Admit Provider: Germania Wharton Primary Care Provider: Kareem Calloway Other Providers: Chun Shafer ; Germania Wharton
[2022-03-20 15:14] VITALS: O2SAT 97
[2022-03-20] MEDS: HEPARIN SODIUM/DEXTROSE 25,000 UNITS/500 ML BAG IV SCH (16:35)
[2022-03-20 18:25] VITALS: BP 128/75; PULSE 80
== END 2022-03-20 19:55 | disposition short-term general hospital (02) | DRG 287 ==
LOC: ED 13:50 → SUATTDRO 14:30 → 2N 14:30 → 2S 20:49
PROC: CLB.CCO (2022-03-20 08:00)
DX: R94.39 Abnormal result of other cardiovascular function study; Z83.3 Family history of diabetes mellitus; Z87.891 Personal history of nicotine dependence; I45.10 Unspecified right bundle-branch block; Z86.73 Personal history of transient ischemic attack (TIA), and cerebral infarction without residual deficits; Z79.02 Long term (current) use of antithrombotics/antiplatelets; I10 Essential (primary) hypertension; E78.5 Hyperlipidemia, unspecified; I25.118 Atherosclerotic heart disease of native coronary artery with other forms of angina pectoris